=== PATIENT | female | born 1960 | race Two or more races ===

== ENCOUNTER → 2021-02-07 | Outpatient (CLI) | payer OTHER | END | disposition home or self-care (01) | LOC: Rad HDHVI 13:48 | PROVIDERS: ATTEND Internal Medicine Cardiovascular Disease | DX: R94.31 Abnormal electrocardiogram [ECG] [EKG] (principal) | CPT/HCPCS: 93306 ==

== ENCOUNTER → 2022-07-21 | Outpatient (CLI) | payer MEDICAID, OTHER | END | disposition home or self-care (01) | LOC: Rad HDHVI 09:01 | PROVIDERS: ATTEND Internal Medicine Cardiovascular Disease | DX: R07.89 Other chest pain (principal); R06.02 Shortness of breath | CPT/HCPCS: 93306 ==

== ENCOUNTER → 2022-07-24 | Outpatient (CLI) | payer MEDICAID ==
[~2022-07-24] VITALS: Ht 172.7 cm; Wt 113.4 kg
[~2022-07-24] MED LIST: ADENOSINE 90 MG/30 ML INJ IV ONE; ADENOSINE 95 MG in GIVE UN-DILUTED 0 ML IV ONE
== END | disposition home or self-care (01) ==
LOC: Rad HDHVI 08:58
PROVIDERS: ATTEND Internal Medicine Cardiovascular Disease
DX: Z01.810 Encounter for preprocedural cardiovascular examination (principal); R06.02 Shortness of breath; I10 Essential (primary) hypertension; E78.5 Hyperlipidemia, unspecified; Z82.49 Family history of ischemic heart disease and other diseases of the circulatory system
CPT/HCPCS: 78452; 93005; 96374; 96375; A9500; J0153

== ENCOUNTER → 2023-06-19 | Outpatient (CLI) | payer MEDICAID ==
[2023-06-19 10:38] LABS: Eosinophils # (auto) 0.1 10 ^3/uL (0-0.8); Hemoglobin 13.8 g/dL (12.2-16.2); Monocytes # (auto) 0.5 10 ^3/uL (0-1.3); Neutrophils # (auto) 3.8 10 ^3/uL (1.6-8.6)
[2023-06-19 10:40] LABS: Basophils # (auto) 0 10 ^3/uL (0-0.2); Basophils % (auto) 0.7 % (0.0-2.0); Eosinophils % (auto) 1.1 % (0.0-7.0); Lymphocytes # (auto) 1.9 10 ^3/uL (0.4-5.4); Lymphocytes % (auto) 29.2 % (10.0-50.0); Mean Corpuscular Hemoglobin 27.2 pg (28.0-32.0); Mean Corpuscular Hgb Conc. 32.8 g/dL (32.0-36.0); Mean Corpuscular Volume 82.8 fL (80.0-100.0); Monocytes % (auto) 8.6 % (0.0-12.0); Neutrophils % (auto) 60.4 % (37.0-80.0); Red Blood Cells 5.07 10^6/uL (4.0-5.20); Red Cell Distribution Width 13.2 % (11.8-14.3); Urine Bacteria NONE SEEN /hpf (None Seen); Urine Blood Negative /uL (Negative); Urine Clarity Clear (Clear); Urine Color Yellow (Yellow); Urine Hyaline Cast FEW /lpf (0 - 2); Urine Mucus FEW (None Seen); Urine Protein, UAD Negative (Negative); Urine Specific Gravity 1.019 (1.001-1.035); Urine Urobilinogen Normal (Negative); Urine WBC <1 /hpf (0 - 5); White Blood Cell 6.4 10^3/uL (4.4-10.8)
[2023-06-19 11:03] LABS: Alanine Aminotransferase 24 U/L (7-40); Albumin 4.3 g/dL (3.2-4.8); Alkaline Phosphatase 92 U/L (46-116); Carbon Dioxide 28 mmol/L (20-30); Chloride 106 mmol/L (98-107); Glucose 98 mg/dL (74-106); Potassium 4.2 mmol/L (3.5-5.1); Triglycerides 173 mg/dL (< 150)
[2023-06-19 11:04] LABS: Anion Gap 6 (5-15); Aspartate Aminotransferase 21 U/L (13-40); BUN/Creatinine Ratio 17.6 (10.0-20.0); Bilirubin, Total 0.6 mg/dL (0.2-1.0); Blood Urea Nitrogen 12 mg/dL (9-23); Cholesterol 231 mg/dL (< 200); HDL Cholesterol 45 mg/dL (40-59); LDL Cholesterol 171 mg/dL (< 100); Sodium 140 mmol/L (136-145); Total Protein 6.7 g/dL (5.7-8.2)
== END | disposition home or self-care (01) ==
LOC: LAB 10:14
PROVIDERS: ATTEND Internal Medicine
DX: Z00.01 Encounter for general adult medical examination with abnormal findings (principal); I10 Essential (primary) hypertension; R73.03 Prediabetes; E78.5 Hyperlipidemia, unspecified
CPT/HCPCS: 36415; 80053; 80061; 81001; 83036; 84443; 84481; 85025

== ENCOUNTER → 2023-07-13 | Outpatient (CLI) | payer MEDICAID, OTHER ==
[2023-07-13 11:21] LABS: Alanine Aminotransferase 25 U/L (7-40); Alkaline Phosphatase 92 U/L (46-116); Anion Gap 4 (5-15); Carbon Dioxide 29 mmol/L (20-30); Chloride 107 mmol/L (98-107); Potassium 4.2 mmol/L (3.5-5.1); Sodium 140 mmol/L (136-145)
[2023-07-13 11:22] LABS: BUN/Creatinine Ratio 23.2 (10.0-20.0); Blood Urea Nitrogen 16 mg/dL (9-23); Glucose 100 mg/dL (74-106)
[2023-07-13 11:23] LABS: Albumin 4.2 g/dL (3.2-4.8); Aspartate Aminotransferase 19 U/L (13-40)
[2023-07-13 11:24] LABS: Bilirubin, Total 0.6 mg/dL (0.2-1.0); Creatine Kinase IFCC 43 U/L (34-145); Total Protein 6.6 g/dL (5.7-8.2)
== END | disposition home or self-care (01) ==
LOC: LAB 10:18
PROVIDERS: ATTEND Internal Medicine
DX: Z11.59 Encounter for screening for other viral diseases (principal); I10 Essential (primary) hypertension; E78.2 Mixed hyperlipidemia; R73.03 Prediabetes
CPT/HCPCS: 36415; 80053; 82550; 86803

== ENCOUNTER 2023-08-01 09:56 | Day surgery (SDC) | payer MEDICAID ==
[2023-07-27 11:09] LABS: Basophils # (auto) 0 10 ^3/uL (0-0.2); Basophils % (auto) 0.6 % (0.0-2.0); Eosinophils # (auto) 0.1 10 ^3/uL (0-0.8); Hemoglobin 13.6 g/dL (12.2-16.2); Lymphocytes # (auto) 2.2 10 ^3/uL (0.4-5.4); Lymphocytes % (auto) 27.3 % (10.0-50.0); Mean Corpuscular Hemoglobin 27.3 pg (28.0-32.0); Mean Corpuscular Hgb Conc. 33.1 g/dL (32.0-36.0); Mean Corpuscular Volume 82.6 fL (80.0-100.0); Monocytes # (auto) 0.6 10 ^3/uL (0-1.3); Monocytes % (auto) 7.6 % (0.0-12.0); Neutrophils % (auto) 63.5 % (37.0-80.0); Red Blood Cells 4.96 10^6/uL (4.0-5.20); Red Cell Distribution Width 13.8 % (11.8-14.3); White Blood Cell 7.9 10^3/uL (4.4-10.8)
[2023-07-27 11:43] LABS: INR 1.04 (0.9-1.15); Partial Thromboplastin Time 28.5 SEC (24.5-34.5); Prothrombin Time 10.9 sec (9.3-11.8)
[2023-07-27 11:56] LABS: Alanine Aminotransferase 17 U/L (7-40); Albumin 4.3 g/dL (3.2-4.8); Alkaline Phosphatase 93 U/L (46-116); Anion Gap 2 (5-15); Aspartate Aminotransferase 17 U/L (13-40); BUN/Creatinine Ratio 22.4 (10.0-20.0); Blood Urea Nitrogen 15 mg/dL (9-23); Carbon Dioxide 30 mmol/L (20-30); Chloride 107 mmol/L (98-107); Glucose 98 mg/dL (74-106); Potassium 4.1 mmol/L (3.5-5.1); Sodium 139 mmol/L (136-145)
[2023-07-27 11:57] LABS: Bilirubin, Total 0.5 mg/dL (0.2-1.0); Total Protein 6.6 g/dL (5.7-8.2)
[~2023-08-01] VITALS: Ht 172.7 cm; Wt 117.0 kg
[~2023-08-01 09:56] MED LIST changes: -ADENOSINE 90 MG/30 ML INJ IV ONE; -ADENOSINE 95 MG in GIVE UN-DILUTED 0 ML IV ONE; +ATOR40TA52 PO; +BIOT5TAB3 PO; +CHOLTAB12 PO; +HYDR25TA5 PO; +OMEP20TA PO; +PROP80CA40 PO; +TURMPOW2 PO
[2023-08-01] MEDS ORDERED: SODIUM CHLORIDE LOCK 10 ML ONE (10:01)
[2023-08-01] MEDS: MIDAZOLAM HCL 5 MG/ML-1ML VIAL ONE (12:28)
[2023-08-01] MEDS: fentaNYL CITRATE 100 MCG/2 ML VL ONE (12:28)
[2023-08-01] MEDS: diphenhdrAMINE HCL 50 MG/1 ML VL ONE (12:28)
[2023-08-01 12:55] VITALS: TEMP 98.4
[2023-08-01 13:22] VITALS: BP 104/84; PULSE 62; RESP 19; O2SAT 96
== END 2023-08-01 13:25 | disposition home or self-care (01) ==
LOC: GI 09:56
PROVIDERS: ATTEND Internal Medicine Gastroenterology
DX: K59.00 Constipation, unspecified (principal); K57.30 Diverticulosis of large intestine without perforation or abscess without bleeding; K64.8 Other hemorrhoids; E66.9 Obesity, unspecified; Z88.1 Allergy status to other antibiotic agents; Z79.899 Other long term (current) drug therapy; Z98.890 Other specified postprocedural states
CPT/HCPCS: 36415; 45380; 80053; 85025; 85610; 85730; J1200; J2250; J3010; J7030; 99152; 99153

== ENCOUNTER 2023-08-03 09:47 | Day surgery (SDC) | payer MEDICAID ==
[~2023-08-03] VITALS: Ht 172.7 cm; Wt 117.0 kg
[2023-08-03] MEDS ORDERED: MIDAZOLAM HCL 5 MG/ML-1ML VIAL ONE (10:24)
[2023-08-03] MEDS ORDERED: SODIUM CHLORIDE LOCK 10 ML ONE (10:24)
[2023-08-03] MEDS ORDERED: fentaNYL CITRATE 100 MCG/2 ML VL ONE (10:24)
[2023-08-03] MEDS ORDERED: LIDOCAINE VISCOUS 2% 15ML UD ONE (10:24)
[2023-08-03] MEDS ORDERED: diphenhdrAMINE HCL 50 MG/1 ML VL ONE (10:24)
[2023-08-03 11:30] VITALS: O2SAT 99
[2023-08-03 11:54] VITALS: RESP 14; TEMP 97.9; O2SAT 94
[2023-08-03 12:21] VITALS: BP 121/59; PULSE 52; RESP 15; O2SAT 94
== END 2023-08-03 12:35 | disposition home or self-care (01) ==
LOC: GI 09:47
PROVIDERS: ATTEND Internal Medicine Gastroenterology
DX: K21.9 Gastro-esophageal reflux disease without esophagitis (principal); K31.7 Polyp of stomach and duodenum; K29.50 Unspecified chronic gastritis without bleeding; K44.9 Diaphragmatic hernia without obstruction or gangrene; I10 Essential (primary) hypertension; E11.9 Type 2 diabetes mellitus without complications; E78.5 Hyperlipidemia, unspecified; J18.9 Pneumonia, unspecified organism; J40 Bronchitis, not specified as acute or chronic; E66.9 Obesity, unspecified; Z79.899 Other long term (current) drug therapy; Z87.01 Personal history of pneumonia (recurrent); Z86.16 Personal history of COVID-19; Z98.51 Tubal ligation status; Z98.41 Cataract extraction status, right eye; Z96.653 Presence of artificial knee joint, bilateral; Z98.890 Other specified postprocedural states; Z88.1 Allergy status to other antibiotic agents
CPT/HCPCS: 43239; 88305; 88313; 88342; J1200; J2250; J3010; J7030

== ENCOUNTER → 2023-12-24 | Outpatient (CLI) | payer MEDICAID ==
[2023-12-24 13:54] LABS: Anion Gap 10 (5-15); Carbon Dioxide 23 mmol/L (20-30); Chloride 109 mmol/L (98-107); Potassium 3.7 mmol/L (3.5-5.1); Sodium 142 mmol/L (136-145)
[2023-12-24 13:55] LABS: Calcium 10.4 mg/dL (8.5-10.1)
[2023-12-24 14:00] LABS: BUN/Creatinine Ratio 20.5 (10.0-20.0); Blood Urea Nitrogen 16 mg/dL (9-23); Glucose 138 mg/dL (74-106)
== END | disposition home or self-care (01) ==
LOC: LAB 12:33
PROVIDERS: ATTEND Internal Medicine
DX: R94.4 Abnormal results of kidney function studies (principal); E78.2 Mixed hyperlipidemia; R73.03 Prediabetes
CPT/HCPCS: 36415; 80048

== ENCOUNTER → 2024-01-11 | Outpatient (CLI) | payer MEDICAID ==
[2024-01-11 11:58] LABS: Chloride 106 mmol/L (98-107); Potassium 4.3 mmol/L (3.5-5.1); Sodium 142 mmol/L (136-145)
[2024-01-11 11:59] LABS: Anion Gap 5 (5-15); Carbon Dioxide 31 mmol/L (20-30)
[2024-01-11 12:00] LABS: Calcium 10.3 mg/dL (8.7-10.4)
[2024-01-11 12:04] LABS: BUN/Creatinine Ratio 18.9 (10.0-20.0); Blood Urea Nitrogen 14 mg/dL (9-23); Glucose 119 mg/dL (74-106)
== END | disposition home or self-care (01) ==
LOC: LAB 11:35
PROVIDERS: ATTEND Internal Medicine
DX: E78.2 Mixed hyperlipidemia (principal)
CPT/HCPCS: 36415; 80048

== ENCOUNTER → 2024-06-02 | Outpatient (CLI) | payer MEDICAID ==
[2024-06-02 09:09] LABS: Basophils # (auto) 0 10 ^3/uL (0-0.2); Basophils % (auto) 0.7 % (0.0-2.0); Eosinophils # (auto) 0.1 10 ^3/uL (0-0.8); Eosinophils % (auto) 1.8 % (0.0-7.0); Hematocrit 41.8 % (36.0-46.0); Hemoglobin 13.6 g/dL (12.2-16.2); Lymphocytes # (auto) 1.7 10 ^3/uL (0.4-5.4); Lymphocytes % (auto) 28.2 % (10.0-50.0); Mean Corpuscular Hemoglobin 27.1 pg (28.0-32.0); Mean Corpuscular Hgb Conc. 32.6 g/dL (32.0-36.0); Mean Corpuscular Volume 83.4 fL (80.0-100.0); Monocytes # (auto) 0.5 10 ^3/uL (0-1.3); Monocytes % (auto) 8.4 % (0.0-12.0); Neutrophils # (auto) 3.7 10 ^3/uL (1.6-8.6); Neutrophils % (auto) 60.9 % (37.0-80.0); Nucleated Red Blood Cells % 0.1 %; Platelet Count (auto) 255 10^3/uL (140-450); Red Blood Cells 5.01 10^6/uL (4.0-5.20); Red Cell Distribution Width 14.1 % (11.8-14.3); White Blood Cell 6.1 10^3/uL (4.4-10.8)
[2024-06-02 09:39] LABS: Alanine Aminotransferase 15 U/L (7-40); Albumin 4.2 g/dL (3.2-4.8); Alkaline Phosphatase 95 U/L (46-116); Anion Gap 5 (5-15); BUN/Creatinine Ratio 20.6 (10.0-20.0); Blood Urea Nitrogen 14 mg/dL (9-23); Carbon Dioxide 30 mmol/L (20-31); Chloride 107 mmol/L (98-107); Glucose 100 mg/dL (74-106); Potassium 4.1 mmol/L (3.5-5.1); Sodium 142 mmol/L (136-145)
[2024-06-02 09:40] LABS: Aspartate Aminotransferase 15 U/L (13-40); Bilirubin, Total 0.6 mg/dL (0.2-1.0); Cholesterol 186 mg/dL (< 200); HDL Cholesterol 46 mg/dL (40-59); Total Protein 6.6 g/dL (5.7-8.2)
[2024-06-02 09:55] LABS: Calcium 10.5 mg/dL (8.7-10.4); LDL Cholesterol 117 mg/dL (< 100); Triglycerides 153 mg/dL (< 150)
== END | disposition home or self-care (01) ==
LOC: LAB 08:53
PROVIDERS: ATTEND Internal Medicine
DX: Z00.01 Encounter for general adult medical examination with abnormal findings (principal)
CPT/HCPCS: 36415; 80053; 80061; 82306; 82607; 83036; 84443; 85025

== ENCOUNTER → 2024-08-19 | Outpatient (CLI) | payer MEDICAID ==
[2024-08-19 11:10] LABS: Anion Gap 9 (5-15); Calcium 10.3 mg/dL (8.7-10.4); Carbon Dioxide 28 mmol/L (20-31); Chloride 104 mmol/L (98-107); Potassium 4.1 mmol/L (3.5-5.1); Sodium 141 mmol/L (136-145)
[2024-08-19 11:16] LABS: BUN/Creatinine Ratio 22.6 (10.0-20.0); Blood Urea Nitrogen 14 mg/dL (9-23); Glucose 94 mg/dL (74-106)
[2024-08-19 12:18] LABS: Cholesterol 182 mg/dL (< 200); HDL Cholesterol 41 mg/dL (40-59); LDL Cholesterol 119 mg/dL (< 100); Triglycerides 165 mg/dL (< 150)
== END | disposition home or self-care (01) ==
LOC: LAB 09:38
PROVIDERS: ATTEND Internal Medicine
DX: I10 Essential (primary) hypertension (principal); E78.2 Mixed hyperlipidemia; R73.03 Prediabetes
CPT/HCPCS: 36415; 80048; 80061; 83036

== ENCOUNTER → 2025-01-16 | Outpatient (CLI) | payer MEDICAID ==
[2025-01-16 09:42] LABS: Alanine Aminotransferase 22 U/L (7-40); Albumin 4.4 g/dL (3.2-4.8); Alkaline Phosphatase 91 U/L (46-116); Anion Gap 8 (5-15); BUN/Creatinine Ratio 21.9 (10.0-20.0); Bilirubin, Total 0.5 mg/dL (0.2-1.0); Blood Urea Nitrogen 14 mg/dL (9-23); Calcium 10.5 mg/dL (8.7-10.4); Carbon Dioxide 28 mmol/L (20-31); Chloride 106 mmol/L (98-107); Cholesterol 185 mg/dL (< 200); Glucose 98 mg/dL (74-106); HDL Cholesterol 45 mg/dL (40-59); Potassium 4.1 mmol/L (3.5-5.1); Sodium 142 mmol/L (136-145); Total Protein 6.5 g/dL (5.7-8.2); Triglycerides 171 mg/dL (< 150)
== END | disposition home or self-care (01) ==
LOC: LAB 08:07
PROVIDERS: ATTEND Internal Medicine
DX: I10 Essential (primary) hypertension (principal); E78.2 Mixed hyperlipidemia; R73.03 Prediabetes
CPT/HCPCS: 36415; 80053; 80061; 82607; 83036

== ENCOUNTER 2025-02-03 07:43 | Inpatient (IN) | payer MEDICAID ==
[2025-02-02 13:07] LABS: Urine Protein, UAD Negative (Negative)
[2025-02-02 13:08] LABS: Hematocrit 44.6 % (36.0-46.0); Hemoglobin 15.0 g/dL (12.2-16.2); Mean Corpuscular Hemoglobin 28.0 pg (28.0-32.0); Mean Corpuscular Volume 83.2 fL (80.0-100.0); Nucleated Red Blood Cells % 0.1 %
[2025-02-02 13:18] LABS: INR 1.03 (0.9-1.15); Partial Thromboplastin Time 26.9 SEC (24.5-34.5); Prothrombin Time 10.9 sec (9.3-11.8)
[2025-02-02 13:24] LABS: Alanine Aminotransferase 19 U/L (7-40); Albumin 4.7 g/dL (3.2-4.8); Alkaline Phosphatase 104 U/L (46-116); Anion Gap 9 (5-15); BUN/Creatinine Ratio 17.1 (10.0-20.0); Bilirubin, Total 0.6 mg/dL (0.2-1.0); Blood Urea Nitrogen 12 mg/dL (9-23); Calcium 10.0 mg/dL (8.7-10.4); Carbon Dioxide 27 mmol/L (20-31); Chloride 105 mmol/L (98-107); Glucose 106 mg/dL (74-106); Potassium 4.0 mmol/L (3.5-5.1); Sodium 141 mmol/L (136-145); Total Protein 7.0 g/dL (5.7-8.2)
[~2025-02-03] VITALS: Ht 172.7 cm; Wt 133.8 kg
[2025-02-03] VITALS (8 sets, daily range): BP systolic 112–114; BP diastolic 64–69; PULSE 53–74; RESP 12–21; TEMP 97.4–98.3; O2SAT 85–98
[~2025-02-03 07:43] MED LIST changes: +BACI1CHW PO; +DULO20CA PO; +HYD25TP TOP; +LORA-622 PO; +NYSTOIN4 TOP; +[UNRECOGNIZED DRUG - CODE] EX
[2025-02-03] MEDS ORDERED: MIDAZOLAM HCL 2MG/2ML 2ml VIAL (1mg/ml) ONE (09:40)
[2025-02-03] MEDS ORDERED: fentaNYL CITRATE 100 MCG/2 ML VL ONE (09:40)
[2025-02-03] MEDS ORDERED: HYDROmorphone HCL 2 MG/ML VL/or syr ONE (09:40)
[2025-02-03] MEDS: SUCCINYLCHOLINE CHLORIDE 20 MG/ML 10ML VIAL IV ONE (09:44)
[2025-02-03] MEDS: CIPROFLOXACIN 400MG/200ML 200 ML IV ONE (09:51)
[2025-02-03] MEDS ORDERED: ETOMIDATE (2MG/ML) 20ML VIAL IV ONE (09:57)
[2025-02-03] MEDS ORDERED: MORPHINE SULFATE 4 MG/ML SYR/VIAL IV PRN (10:30)
[2025-02-03] MEDS ORDERED: hydrALAZINE HCL 20 MG/ML VL IV PRN ×2 (10:30→14:00)
[2025-02-03] MEDS ORDERED: HYDROmorphone HCL 2 MG/ML VL/or syr IV PRN (10:30)
[2025-02-03] MEDS ORDERED: MIDAZOLAM HCL 2MG/2ML 2ml VIAL (1mg/ml) IV PRN (10:30)
--- NOTE | 2025-02-03 10:37 | DVHNC2 ---
Procedure - OPERATIVE REPORT Pre-op. Diagnosis: Bladder tumor/mass Post-op. 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 All questions were encouraged and answered. Patient is aware of risks/complications including but not limited to infection, bleeding, bladder injury requiring additional procedures, urinary incontinence and possible need for additional procedures. Patient consented to proceed. Patient is taken to the operating room and underwent appropriate anesthesia. After positioning in lithotomy, area of the genitalia is prepped and draped in usual sterile fashion. Resecting element on the resectoscope with 30 degree lens is used to access the bladder and remove the identified bladder mass. normal saline irrigation was used with bipolar instrumentation. Bladder was decompressed and a temporary Silva catheter was inserted Specimens: Bladder tumor- 3 cm located on the left dome of the bladder Complications: None TIFF BOYD MD Feb 03, 2025 10:37
--- NOTE | 2025-02-03 10:38 | DVHDS2 ---
New Physician D'charge PN Admitting Diagnosis Admitting Diagnosis Bladder tumor Discharge Diagnosis Same Operations or Procedures TURBT, medium size 3 cm Reason(s) For Hospitalization Surgery Treatment Plan Discharge Condition of Discharge Fair Disposition Home Discharge Instructions Diet: Regular Activity: Light activity Activity comment: Silva catheter management Medications: Given Follow Up Care Follow Up/Referral: Voiding trial on postop day 1. Discharge Statement: "Patient was advised to return to the ER or call 911 if any headaches, dizziness, shortness of breath, chest pain, abdominal pain, bleeding, fevers, or worsening of medical condition. Patient was counseled about treatment plan, medications, possible side effects, patientverbalized understanding. All questions were answered to the best of my ability. This discharge took greater then 30 minutes in planning, reviewing documentation, counseling the patient, and discussing with other team members." TIFF BOYD MD Feb 03, 2025 10:38
[2025-02-03] MEDS: IPRATROPIUM BROM 0.5 MG/2.5ML INH SOL NEB ONE (11:19)
[2025-02-03] MEDS: ALBUTEROL SULF 2.5 MG/0.5ML(0.5%) NEB SOLN NEB ONE (11:20)
[2025-02-03] MEDS: IPRATROPIUM BROM 0.5 MG/2.5ML INH SOL ONE (11:20)
[2025-02-03] MEDS: ALBUTEROL SULF 2.5 MG/0.5ML(0.5%) NEB SOLN ONE (11:20)
[2025-02-03] MEDS: ONDANSETRON HCL 4 MG/2 ML VIAL IV ONE (12:04)
[2025-02-03] MEDS: ACETAMINOPHEN IV 1000 MG/100ML (10MG/ML) IV ONE (13:45)
--- NOTE | 2025-02-03 13:53 | DVHHP2 ---
Review of Systems Allergies: Coded Allergies: Cephalexin (Verified Allergy, Unknown, 02/10/21) Uncoded Allergies: adhesives (Adverse Reaction, Unknown, hives , 02/02/25) Medications Current Medications Medications Dose Ordered Sig/Jose Route Start Time Stop Time Status Last Admin Dose Admin Nitroglycerin 0.4 mg Q5MINP PRN SL 02/03/25 14:00 UNV Morphine Sulfate 2 mg Q30M PRN IV 02/03/25 14:00 UNV Hydralazine HCl 10 mg Q6HP PRN IV 02/03/25 14:00 UNV Hydrochlorothiazide 25 mg DAILY PO 02/04/25 10:00 UNV Exam Vital Signs Vital Signs Date Time Temp Pulse Resp B/P (MAP) Pulse Ox O2 Delivery O2 Flow Rate FiO2 02/03/25 11:22 59 14 94 02/03/25 11:15 Non-Rebreather 15.0 02/03/25 11:15 N/A 02/03/25 10:40 97.0 158/84 (108) 97.0 Labs/Xrays Labs Test 02/02/25 12:23 Range/Units White Blood Count 7.9 4.4-10.8 10^3/uL Red Blood Count 5.35 H 4.0-5.20 10^6/uL Hemoglobin 15.0 12.2-16.2 g/dL Hematocrit 44.6 36.0-46.0 % Mean Corpuscular Volume 83.2 80.0-100.0 fL Mean Corpuscular Hemoglobin 28.0 28.0-32.0 pg Mean Corpuscular Hemoglobin Concent 33.7 32.0-36.0 g/dL Red Cell Distribution Width 14.2 11.8-14.3 % Platelet Count 294 140-450 10^3/uL Mean Platelet Volume 8.4 6.9-10.8 fL Neutrophils (%) (Auto) 62.5 37.0-80.0 % Lymphocytes (%) (Auto) 28.4 10.0-50.0 % Monocytes (%) (Auto) 7.4 0.0-12.0 % Eosinophils (%) (Auto) 1.1 0.0-7.0 % Basophils (%) (Auto) 0.6 0.0-2.0 % Neutrophils # (Auto) 4.9 1.6-8.6 10 ^3/uL Lymphocytes # (Auto) 2.2 0.4-5.4 10 ^3/uL Monocytes # (Auto) 0.6 0-1.3 10 ^3/uL Eosinophils # (Auto) 0.1 0-0.8 10 ^3/uL Basophils # (Auto) 0 0-0.2 10 ^3/uL Nucleated Red Blood Cells 0.1 % Prothrombin Time 10.9 9.3-11.8 sec Prothrombin Time INR 1.03 0.9-1.15 Activated Partial Thromboplast Time 26.9 24.5-34.5 SEC Urine Color Yellow Yellow Urine Clarity Clear Clear Urine pH 5.0 5.0-9.0 Urine Specific [place] 1.023 1.001-1.035 Urine Protein Negative Negative Urine Ketones Negative Negative Urine Blood Negative Negative /uL Urine Nitrite Negative Negative Urine Bilirubin Negative Negative Urine Urobilinogen Normal Negative mg/dL Urine Leukocyte Esterase 2+ Negative /uL Urine RBC 3 0 - 4 /hpf Urine Microscopic WBC 4 0-5 /HPF Urine Squamous Epithelial Cells Few <5 /hpf Urine Bacteria None seen None Seen /hpf Urine Mucus Few None Seen Urine Glucose Normal Normal mg/dL Sodium Level 141 136-145 mmol/L Potassium Level 4.0 3.5-5.1 mmol/L Chloride Level 105 98-107 mmol/L Carbon Dioxide Level 27 20-31 mmol/L Anion Gap 9 5-15 Blood Urea Nitrogen 12 9-23 mg/dL Creatinine 0.70 0.550-1.02 mg/dL Glomerular Filtration Rate Calc 95 >90 mL/min BUN/Creatinine Ratio 17.1 10.0-20.0 Serum Glucose 106 74-106 mg/dL Calcium Level 10.0 8.7-10.4 mg/dL Total Bilirubin 0.6 0.2-1.0 mg/dL Aspartate Amino Transferase (AST) 23 13-40 U/L Alanine Aminotransferase (ALT) 19 7-40 U/L Alkaline Phosphatase 104 46-116 U/L Total Protein 7.0 5.7-8.2 g/dL Albumin 4.7 3.2-4.8 g/dL Microbiology Date/Time Source Procedure Growth Status 02/02/25 12:23 Voided Urine Urine Culture - Preliminary Resulted SEPSIS Sepsis Screen Physician Orders Oxygen By Face Mask (02/03/25 10:19) Oxygen By Nasal Cannula (02/03/25 10:19) Associate Brand Manager (02/03/25 10:19) Notify Anesth. For Changes: (02/03/25 10:19) Pulse Ox Assessment (02/03/25 10:19) May Have Head Of Bed Up (02/03/25 10:19) Continue Present Iv (02/03/25 10:19) Follow Iv With Surgeon Orders (02/03/25 10:19) Discharge To Room Per Criteria (02/03/25 10:19) Regular Diet (02/03/25 Lunch) Ok To Send Pt Home With Silva (02/03/25 10:38) Discharge Home Once Stable (02/03/25 10:38) Follow Up: (02/03/25 10:38) Acetaminophen Iv (Ofirmev) (02/03/25 13:45) Admit (02/03/25 13:46) Nitroglycerin Sublingual (Ntrostat Subli (02/03/25 14:00) Morphine Sulfate Injection (02/03/25 14:00) Stat Ekg For Chest Pain (02/03/25 13:46) Notify Md Of Changes From Base (02/03/25 13:46) Admitting Interviewer For 24 Hours (02/03/25 13:46) Emergency Dysrhythmia Protocol (02/03/25 13:46) Rhythm Strips Once Every Shift (02/03/25 13:46) Oxygen By Nasal Cannula (02/03/25 13:46) Hydralazine Injection (Apresoline Inject (02/03/25 14:00) Hydrochlorothiazide Tablet (Hydrochlorot (02/04/25 10:00) Hydrocodone-Acet 5/325mg Tab ([place] 5/32 (02/03/25 14:00) Ondansetron Hcl (Zofran) (02/03/25 14:00) Pantoprazole Tablet (Protonix Tablet) (02/04/25 06:00) Complete Blood Count (02/04/25 06:00) Comprehensive Metabolic Panel (02/04/25 06:00) Chest Portable (02/03/25 13:46) Incentive Spirometry Q 1hr (02/03/25 13:51) Vital Signs Date Time Temp Pulse Resp B/P (MAP) Pulse Ox O2 Delivery O2 Flow Rate FiO2 02/03/25 11:22 59 14 94 02/03/25 11:15 61 12 93 02/03/25 11:15 93 Non-Rebreather 15.0 02/03/25 11:15 93 Non-Rebreather 15 N/A 02/03/25 10:40 97.0 74 21 158/84 (108) 85 97.0 02/03/25 07:53 97.0 60 18 126/80 (95) 94 97.0 Medications Medications Dose Ordered Sig/Jose Route Start Time Stop Time Status Last Admin Dose Admin Albuterol 1.25 mg ONCE ONCE NEB 02/03/25 11:00 02/03/25 11:01 DC 02/03/25 11:20 1.25 MG Ipratropium [place] 0.5 mg ONCE ONCE NEB 02/03/25 11:00 02/03/25 11:01 DC 02/03/25 11:19 0.5 MG Ondansetron HCl 4 mg PRN ONCE IV 02/03/25 10:30 02/03/25 10:31 DC 02/03/25 12:04 4 MG Assessment/Plan Assessment/Plan SEE DICTATED NOTE Plan discussed with: Patient My Orders Orders - SHON BEARDEN MD Procedure Category Date Status Time Admit ADMIT 02/03/25 Transmitted 13:46 Nitroglycerin [facility] 02/03/25 Logged Sublingual (Ntrostat 14:00 Morphine Sulfate [facility] 02/03/25 Logged Injection 14:00 Stat Ekg For Chest [facility] 02/03/25 In Process Pain 13:46 Notify Of Changes [facility] 02/03/25 In Process From Base 13:46 Admitting Interviewer For [facility] 02/03/25 In Process 24 Hours 13:46 Emergency Dysrhythmia [facility] 02/03/25 In Process Protocol 13:46 Rhythm Strips Once [facility] 02/03/25 In Process Every Shift 13:46 Oxygen By Nasal RT 02/03/25 Transmitted Cannula 13:46 Hydralazine Injection [facility] 02/03/25 Logged (Apresoline Inject 14:00 Hydrochlorothiazide [facility] 02/04/25 Logged Tablet (Hydrochlorot 10:00 Hydrocodone-Acet PHA 02/03/25 Logged 5/325mg Tab ([place] 14:00 Ondansetron Hcl PHA 02/03/25 Logged (Zofran) 14:00 Pantoprazole Tablet [facility] 02/04/25 Transmitted (Protonix Tablet) 06:00 Complete Blood Count LAB 02/04/25 Verified 06:00 Comprehensive LAB 02/04/25 Verified Metabolic Panel 06:00 Chest Portable XY 02/03/25 Logged 13:46 Incentive Spirometry ORDERS 02/03/25 Verified Q 1hr 13:51 Date of Service: Feb 03, 2025 Billing Provider: SHON BEARDEN MD Common Visit Codes: [id number] INP/OBS CARE (HIGH) Secondary Visit Codes: [id number] CARE PLAN 30 MINUTES SHON BEARDEN MD Feb 03, 2025 13:53
[2025-02-03] MEDS: ACETAMINOPHEN IV 100 ML IV ONE (13:57)
[2025-02-03] MEDS ORDERED: ONDANSETRON HCL 4 MG/2 ML VIAL IV PRN (14:00)
[2025-02-03] MEDS ORDERED: MORPHINE SULFATE INJ 2 MG/ml SYRG IV PRN (14:00)
[2025-02-03] MEDS ORDERED: NITROGLYCERIN 0.4 MG SL TAB SL PRN (14:00)
--- NOTE | 2025-02-03 14:22 | DVHHP ---
ADMIT DATE: 02/03/2025 HISTORY OF PRESENT ILLNESS: The patient is a 64-year-old lady who is admitted after transurethral resection of the bladder tumor. The patient post procedure was noted to be increasingly hypoxic and bradycardic and is now being admitted. The patient denies any shortness of breath. No nausea or vomiting. No history of chest pain. REVIEW OF SYSTEMS: Review of rest of the systems otherwise currently negative. PAST MEDICAL HISTORY: Significant for hypertension, hyperlipidemia, and GERD. MEDICATIONS: She takes Lipitor, duloxetine, hydrochlorothiazide, propranolol, and omeprazole. ALLERGIES: CEPHALEXIN. SOCIAL HISTORY: Denies smoking or alcohol. Lives at home with her . FAMILY HISTORY: Negative. PHYSICAL EXAMINATION: GENERAL: The patient is awake, alert. VITAL SIGNS: Temperature of 97, pulse 61 per minute, ____ 15 liters per minute. SHEENT: Unremarkable. NECK: There is no JVD. No pedal edema. LUNGS: Equal bilaterally. No added sounds. CARDIOVASCULAR: S1 and S2 are regular, no murmurs. ABDOMEN: Soft. There is no organomegaly. NEUROLOGIC: Nonfocal. MUSCULOSKELETAL: Normal. ASSESSMENT AND PLAN: * Hypoxia for which the patient will be given incentive spirometry and a chest x-ray will be obtained. * Bradycardia for which her propranolol will be held. * Hypertension. * Morbid obesity. * Hyperlipidemia. * Depression. * Status post transurethral resection of bladder tumor. ADVANCED CARE PLANNING: The patient is a full code-TIME SPENT: 18 minutes. MD LUKASZ Johnson/AAMIR/MARIN TID: [id number] RECEIPT: [id number] [facility]
--- NOTE | 2025-02-03 14:26 | DVH ---
INDICATION: HYPOXIA TECHNIQUE: Frontal view of the chest. COMPARISON: None FINDINGS: SCARRING IN THE LEFT UPPER LOBE. The heart and mediastinal contours are grossly unremarkable. There is no evidence of pleural disease. The bony structures of the chest are intact without fracture. IMPRESSION: 1. SCARRING IN THE LEFT UPPER LOBE. CT suggested.
[2025-02-04] VITALS (8 sets, daily range): BP systolic 111–134; BP diastolic 59–81; PULSE 59–88; RESP 17–20; TEMP 97.2–98; O2SAT 93–98
[2025-02-04] MEDS: HYDROcodone-ACET 5/325MG TAB PO PRN (03:18)
[2025-02-04] MEDS: PANTOPRAZOLE 40 MG TAB PO SCH (05:10)
[2025-02-04 06:42] LABS: Alanine Aminotransferase 19 U/L (7-40); Albumin 4.2 g/dL (3.2-4.8); Alkaline Phosphatase 89 U/L (46-116); Anion Gap 9 (5-15); BUN/Creatinine Ratio 19.7 (10.0-20.0); Blood Urea Nitrogen 14 mg/dL (9-23); Calcium 9.6 mg/dL (8.7-10.4); Carbon Dioxide 28 mmol/L (20-31); Chloride 103 mmol/L (98-107); Potassium 4.4 mmol/L (3.5-5.1); Sodium 140 mmol/L (136-145); Total Protein 6.2 g/dL (5.7-8.2)
[2025-02-04 06:43] LABS: Bilirubin, Total 0.4 mg/dL (0.2-1.0)
[2025-02-04 06:51] LABS: Glucose 138 mg/dL (74-106)
[2025-02-04 07:02] LABS: Hematocrit 39.1 % (36.0-46.0); Hemoglobin 13.5 g/dL (12.2-16.2); Mean Corpuscular Hemoglobin 28.7 pg (28.0-32.0); Mean Corpuscular Volume 83.2 fL (80.0-100.0); Nucleated Red Blood Cells % 0.1 %
[2025-02-04] MEDS: hydroCHLOROthiazide 25 MG TAB PO SCH (08:54)
--- NOTE | 2025-02-04 11:05 | DVHPN2 ---
Progress Note Date Seen: Feb 04, 2025 Medical Necessity Reason Pt with a Central, PICC or Fol: No Subjective Patient reports: No new complaints Review of Systems: HEENT:Normal, CVS:Normal, RESPIRATORY:Normal, GI:Normal, :Normal, MSK:Normal, NEURO:Normal Objective vital signs Vital Sign Date Time Temp Pulse Resp B/P (MAP) Pulse Ox O2 Delivery O2 Flow Rate FiO2 02/04/25 08:54 121/66 02/04/25 08:46 97.2 72 18 97 97.2 02/04/25 07:45 Room Air* 0 21 Total Intake and Output 02/03/25 02/03/25 02/04/25 15:00 23:00 07:00 Intake Total 300 ml 600 ml Output Total 450 ml Balance 300 ml 150 ml medications Current Medications Medications Dose Ordered Sig/Jose Route Start Time Stop Time Status Last Admin Dose Admin Nitroglycerin 0.4 mg Q5MINP PRN SL 02/03/25 14:00 Morphine Sulfate 2 mg Q30M PRN IV 02/03/25 14:00 Hydralazine HCl 10 mg Q6HP PRN IV 02/03/25 14:00 Hydrochlorothiazide 25 mg DAILY PO 02/04/25 10:00 02/04/25 08:54 25 MG Acetaminophen/ Hydrocodone [place] 1 tab Q6HPRN PRN PO 02/03/25 14:00 02/04/25 03:18 1 TAB Ondansetron HCl 4 mg Q6HPRN PRN IV 02/03/25 14:00 Pantoprazole Sodium 40 mg DAILY@0600 PO 02/04/25 06:00 02/04/25 05:10 40 MG Examination: GENERAL:Normal, HEENT:Normal, NECK:Normal, LUNGS:Normal, LUNGS:Abnormal (ON OXYGEN), CVS:Normal, ABDOMEN:Normal, MSK:Normal, SKIN:Normal, NEURO:Normal, :Normal laboratory and microbiology Laboratory Tests 02/04/25 04:56 Test 02/04/25 04:56 Range/Units Serum Glucose 138 H 74-106 mg/dL Microbiology Date/Time Source Procedure Growth Status 02/02/25 12:23 Voided Urine Urine Culture - Final Complete Problem List/Assessment/Plan Problem List/Assessment/Plan * Hypoxia/ acute resp failure: for which the patient will be given incentive spirometry and a chest x-ray will be obtained, Ct chest * Bradycardia for which her propranolol will be held. * Hypertension. * Morbid obesity. * Hyperlipidemia. * Depression. * Status post transurethral resection of bladder tumor. advance care planning= full code- time spent 18 mins Plan discussed with: Patient My Orders My Orders Orders - SHON BEARDEN MD Procedure Category Date Status Time Admit ADMIT 02/03/25 Transmitted 13:46 Nitroglycerin PHA 02/03/25 In Process Sublingual (Ntrostat 14:00 Morphine Sulfate PHA 02/03/25 In Process Injection 14:00 Stat Ekg For Chest [place]EN 02/03/25 In Process Pain 13:46 Notify Md Of Changes [facility] 02/03/25 In Process From Base 13:46 Pet Sitter For [facility] 02/03/25 In Process 24 Hours 13:46 Emergency Dysrhythmia [facility] 02/03/25 In Process Protocol 13:46 Rhythm Strips Once [facility] 02/03/25 In Process Every Shift 13:46 Oxygen By Nasal RT 02/03/25 Transmitted Cannula 13:46 Hydralazine Injection PHA 02/03/25 In Process (Apresoline Inject 14:00 Hydrochlorothiazide PHA 02/04/25 In Process Tablet (Hydrochlorot 10:00 Hydrocodone-Acet PHA 02/03/25 In Process 5/325mg Tab ([place] 14:00 Ondansetron Hcl PHA 02/03/25 In Process (Zofran) 14:00 Pantoprazole Tablet PHA 02/04/25 In Process (Protonix Tablet) 06:00 Chest Portable XY 02/03/25 Resulted 13:46 Incentive Spirometry ORDERS 02/03/25 Transmitted Q 1hr 13:[address] 02/04/25 Transmitted 11:01 Incentive Spirometry ORDERS 02/04/25 Transmitted Q 1hr 11:01 Date of Service: Feb 04, 2025 Billing Provider: SHON BEARDEN MD Common Visit Codes: [id number] INP/OBS CARE(HIGH) Secondary Visit Codes: [id number] CARE PLAN 30 MINUTES SHON BEARDEN MD Feb 04, 2025 11:05
--- NOTE | 2025-02-04 12:24 | DVH ---
CT CHEST WITHOUT CONTRAST INDICATION: LEFT LUNG INFILTRATE EXAM DATE: 02/04/2025 11:26 AM COMPARISON: XY CHEST PORTABLE on DOS: 02/03/25 RADIATION DOSE: CTDIvol: 27.52 mGy, DLP: 980.69 mGy*cm PROCEDURE: Helical CT images were obtained of the chest without intravenous contrast. Sagittal and c oronal reconstructions are provided. ADDITIONAL IMAGES / REFORMATS: None All CT scans at this medical facility are performed using dose modulation techniques as appropriate t o a performed exam including the following: Automated exposure control was utilized; adjustment of th e MA and/or KV according to patient size; and use of iterative reconstruction technique. FINDINGS: Bones: Scattered degenerative changes are noted. Visualized Abdomen: 2.0 cm left adrenal nodule. Chest Wall: Normal. Soft tissues: Normal. Mediastinum: Normal. Heart: Coronary artery calcifications are noted. Vessels: Normal. Lymph Nodes: Normal. Pleura: Normal. Airways: Normal. Lung: Right upper lobe subsegmental atelectasis. Previously noted GLENN scarring not visualized and cou ld have been atelectasis. Other: None IMPRESSION: Right upper lobe subsegmental atelectasis. Previously noted GLENN scarring not visualized and could hav e been atelectasis.
--- NOTE | 2025-02-04 12:43 | DVHDS2 ---
Discharge Summary Date of Admission Feb 03, 2025 at 13:46 Date of Discharge: Feb 04, 2025 Labs/Diagnostic Data: Laboratory Results Test 02/04/25 04:56 02/02/25 12:23 White Blood Count 10.2 10^3/uL (4.4-10.8) Red Blood Count 4.70 10^6/uL (4.0-5.20) Hemoglobin 13.5 g/dL (12.2-16.2) Hematocrit 39.1 % (36.0-46.0) Mean Corpuscular Volume 83.2 fL (80.0-100.0) Mean Corpuscular Hemoglobin 28.7 pg (28.0-32.0) Mean Corpuscular Hemoglobin Concent 34.6 g/dL (32.0-36.0) Red Cell Distribution Width 14.1 % (11.8-14.3) Platelet Count 237 10^3/uL (140-450) Mean Platelet Volume 8.3 fL (6.9-10.8) Neutrophils (%) (Auto) 87.5 % (37.0-80.0) Lymphocytes (%) (Auto) 6.5 % (10.0-50.0) Monocytes (%) (Auto) 5.9 % (0.0-12.0) Eosinophils (%) (Auto) 0.0 % (0.0-7.0) Basophils (%) (Auto) 0.1 % (0.0-2.0) Neutrophils # (Auto) 8.9 10 ^3/uL (1.6-8.6) Lymphocytes # (Auto) 0.7 10 ^3/uL (0.4-5.4) Monocytes # (Auto) 0.6 10 ^3/uL (0-1.3) Eosinophils # (Auto) 0 10 ^3/uL (0-0.8) Basophils # (Auto) 0 10 ^3/uL (0-0.2) Nucleated Red Blood Cells 0.1 % Sodium Level 140 mmol/L (136-145) Potassium Level 4.4 mmol/L (3.5-5.1) Chloride Level 103 mmol/L (98-107) Carbon Dioxide Level 28 mmol/L (20-31) Anion Gap 9 (5-15) Blood Urea Nitrogen 14 mg/dL (9-23) Creatinine 0.71 mg/dL (0.550-1.02) Glomerular Filtration Rate Calc 94 mL/min (>90) BUN/Creatinine Ratio 19.7 (10.0-20.0) Serum Glucose 138 mg/dL (74-106) Calcium Level 9.6 mg/dL (8.7-10.4) Total Bilirubin 0.4 mg/dL (0.2-1.0) Aspartate Amino Transferase (AST) 22 U/L (13-40) Alanine Aminotransferase (ALT) 19 U/L (7-40) Alkaline Phosphatase 89 U/L (46-116) Total Protein 6.2 g/dL (5.7-8.2) Albumin 4.2 g/dL (3.2-4.8) Prothrombin Time 10.9 sec (9.3-11.8) Prothrombin Time INR 1.03 (0.9-1.15) Activated Partial Thromboplast Time 26.9 SEC (24.5-34.5) Urine Color Yellow (Yellow) Urine Clarity Clear (Clear) Urine pH 5.0 (5.0-9.0) Urine Specific [place] 1.023 (1.001-1.035) Urine Protein Negative (Negative) Urine Ketones Negative (Negative) Urine Blood Negative /uL (Negative) Urine Nitrite Negative (Negative) Urine Bilirubin Negative (Negative) Urine Urobilinogen Normal mg/dL (Negative) Urine Leukocyte Esterase 2+ /uL (Negative) Urine RBC 3 /hpf (0 - 4) Urine Microscopic WBC 4 /HPF (0-5) Urine Squamous Epithelial Cells Few /hpf (<5) Urine Bacteria None seen /hpf (None Seen) Urine Mucus Few (None Seen) Urine Glucose Normal mg/dL (Normal) Other Laboratory Tests 02/04/25 04:56 Brief Hx & Hospital Course: see dictated note Condition at Discharge: Fair Final Diagnosis/Problems List cystoscopy Discharge Disposition: Home Discharge Instruct/Medications Diet: Regular Activity: Light activity Follow Up/Referral: fu with dr Lorenz Medications: per dr Lorenz resume home meds Scheduled Atorvastatin Calcium (Atorvastatin Calcium), 40 MG PO DAILY, (Reported) Biotin (Vitamin H) (Biotin), 5 MG PO DAILY, (Reported) Cholecalciferol (D3), 50 MCG PO DAILY, (Reported) Hctz (Hydrochlorothiazide), 25 MG PO DAILY, (Reported) Hydrocortone (Hydrocortisone 2.5%), 1 APPLIC TOP BID, (Reported) Loratadine (Claritin), 1 TAB PO DAILY, (Reported) Nystatin-Triamcinolone (Triamcinolone/Nystatin), 1 APPLIC TOP BID, (Reported) Omeprazole (Gnp Omeprazole), 20 MG PO DAILY, (Reported) Propranolol Hcl (Inderal La), 40 MG PO BID, (Reported) Turmeric (Curcumin), 1 PO DAILY, (Reported) Miscellaneous Medications Bacillus Coagulans-Inulin (Prebiotic/Probiotic 5-1.25 mg-gm), 1 CHW PO, (Reported) Duloxetine Hcl (Cymbalta), 30 MG PO, (Reported) Liniments & Rubs (Deep Blue Relief), 1 EX, (Reported) Discharge Statement: "Patient was advised to return to the ER or call 911 if any headaches, dizziness, shortness of breath, chest pain, abdominal pain, bleeding, fevers, or worsening of medical condition. Patient was counseled about treatment plan, medications, possible side effects, patientverbalized understanding. All questions were answered to the best of my ability. This discharge took greater then 30 minutes in planning, reviewing documentation, counseling the patient, and discussing with other team members." ASSESSMENT ASSESSMENT Assessment cystoscopy Date of Service: Feb 04, 2025 Billing Provider: SHON BEARDEN MD Common Visit Codes: [id number] DISCH DAY >30min SHON BEARDEN MD Feb 04, 2025 12:43
--- NOTE | 2025-02-04 12:52 | DVHDS ---
DATE OF DISCHARGE: 02/04/2025 HISTORY OF PRESENT ILLNESS: The patient is a 64-year-old lady who was admitted after she was noted to be hypoxic with bradycardia and underwent a transurethral resection of the bladder tumor. HOSPITAL COURSE: The patient did well postoperatively. The patient had a chest x-ray that showed scarring in the left upper lobe. A CT chest that was subsequently done did not show any scarring, but showed right upper lobe subsegmental atelectasis. The patient as per my discussion with Dr. Lorenz can now be discharged home. She is to be discharged after pulse ox is done on room air, to resume her home medications and follow up with him in the next 1-2 weeks. FINAL DIAGNOSES: Therefore: * Acute respiratory failure with likely atelectasis. * Morbid obesity. * Hypertension. * Hyperlipidemia. * Depression. * Status post transurethral resection of bladder tumor. Time spent in discharge planning and review of plan with the patient, sr. consultant and nursing was 38 minutes. MD LUKASZ Johnson/EKT TID: [id number] RECEIPT: [id number]
[2025-02-04] MEDS ORDERED: PHENYLEPHRINE INJ 10 MG/ML 10ML VIAL IV ONE (15:22)
== END 2025-02-04 14:10 | disposition home or self-care (01) | DRG 668 ==
LOC: SUR 07:43 → OVERFLOW 13:46 → TELE-WESTW 16:03
PROVIDERS: ADMIT Internal Medicine; ATTEND Internal Medicine
PROC: 0TBB8ZZ Excision of Bladder, Via Natural or Artificial Opening Endoscopic (ICD-10-PCS; principal; 2025-02-03 09:50)
DX: D49.4 Neoplasm of unspecified behavior of bladder (principal); J96.01 Acute respiratory failure with hypoxia; J98.11 Atelectasis; Z68.41 Body mass index [BMI] 40.0-44.9, adult; E66.01 Morbid (severe) obesity due to excess calories; K21.9 Gastro-esophageal reflux disease without esophagitis; E78.5 Hyperlipidemia, unspecified; F32.A Depression, unspecified; I10 Essential (primary) hypertension; Z88.1 Allergy status to other antibiotic agents; Z79.899 Other long term (current) drug therapy
CPT/HCPCS: 36415; 71045; 71250; 80053; 81001; 85025; 85610; 85730; 87086; 94640; A4344; G0378; J0131; J0330; J1100; J2250; J2405